=== PATIENT | male | born 1995 | race American Indian/Alaskan Native ===

== ENCOUNTER 2020-10-11 19:17 | Emergency (ER) | payer BC ==
[2020-10-11 19:24] VITALS: BP 162/76
[2020-10-11] MEDS ORDERED: HYDROcodone/ACETAMINOPHEN 5-325 MG TAB PO ONE (19:48)
[2020-10-11] MEDS ORDERED: diphenhydrAMINE 25 MG CAP PO ONE (19:48)
[2020-10-11] MEDS ORDERED: FAMOTIDINE 20 MG TAB PO ONE (19:48)
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
== END 2020-10-11 21:45 | disposition home or self-care (01) ==
LOC: ED 19:17
DX: T65.91XA Toxic effect of unspecified substance, accidental (unintentional), initial encounter (principal); T20.40XA Corrosion of unspecified degree of head, face, and neck, unspecified site, initial encounter; Z90.89 Acquired absence of other organs; Z79.899 Other long term (current) drug therapy; Z88.1 Allergy status to other antibiotic agents; Z88.0 Allergy status to penicillin; T79.9XXA Unspecified early complication of trauma, initial encounter; Y93.89 Activity, other specified; Y92.89 Other specified places as the place of occurrence of the external cause; Y99.8 Other external cause status
CPT/HCPCS: 99282